=== PATIENT | female | born 1930 | race African-American/Black ===

== ENCOUNTER 2017-01-11 15:34 | Emergency (ER) | payer MEDICARE, MEDICAID ==
[~2017-01-11] VITALS: Ht 162.6 cm; Wt 75.0 kg
[~2017-01-11 15:34] MED LIST: ALBU6.7H INH; AMIO200T39 PO; AMLO10TA80 PO; DILT120C11 MT; FLUT1DIS3 INH; Hydrochlorothiazide PO; LIDO700A TOP; OMEP20TA80 PO; PRED5TAB48 PO; QUET25TA PO; T3 PO
[2017-01-11] MEDS ORDERED: HYDROCODONE/ACETAMINOPHEN 5/325MG TABLET PO ONE (17:30)
[2017-01-11 18:09] VITALS: BP 178/86
== END 2017-01-11 20:48 | disposition home or self-care (01) ==
LOC: ER 15:34
DX: M25.561 Pain in right knee (principal); M25.571 Pain in right ankle and joints of right foot; F03.90 Unspecified dementia, unspecified severity, without behavioral disturbance, psychotic disturbance, mood disturbance, and anxiety; I10 Essential (primary) hypertension; Z79.1 Long term (current) use of non-steroidal anti-inflammatories (NSAID); Z79.899 Other long term (current) drug therapy; Z95.0 Presence of cardiac pacemaker
CPT/HCPCS: 73502; 73560; 73590; 73610; 73630; 99284

== ENCOUNTER 2017-05-08 07:46 | Emergency (ER) | payer MEDICARE, MEDICAID ==
[~2017-05-08] VITALS: Ht 165.1 cm; Wt 55.0 kg
[~2017-05-08 07:46] MED LIST changes: +ACET-3161 PO; -T3 PO
[2017-05-08 08:59] LABS: HEMATOCRIT. 29.5 % (36.0-48.0); MEAN CORPUSCULAR HEMOGLOBIN 21.9 pg (28.0-32.0); MEAN CORPUSCULAR VOLUME 71.9 fL (81.0-99.0); MEAN PLATELET VOLUME 7.8 fl (7.4-10.4); PLATELET 223 x1000/uL (130-400); RED CELL DISTRIBUTION WIDTH 18.8 % (11.6-14.6)
[2017-05-08 08:59] LABS: *AMPHETAMINES SCREEN URINE NEGATIVE (NEGATIVE); *BARBITURATES SCREEN URINE NEGATIVE (NEGATIVE); *BENZODIAZEPINES SCREEN URINE NEGATIVE (NEGATIVE); *COCAINE SCREEN URINE NEGATIVE (NEGATIVE); CANNABINOID URINE SCREEN NEGATIVE (NEGATIVE); METHADONE URINE SCREEN NEGATIVE (NEGATIVE); OPIATES URINE SCREEN NEGATIVE (NEGATIVE); PHENCYCLIDINE URINE SCREEN NEGATIVE (NEGATIVE)
[2017-05-08 09:05] LABS: PROTHROMBIN TIME 10.7 sec
[2017-05-08 09:13] LABS: CARBON DIOXIDE 26 mEq/L (21-32); CHLORIDE 111 mEq/L (98-107)
[2017-05-08 09:15] LABS: TROPONIN I < 0.02 ng/mL (0.00-0.04)
[2017-05-08] MEDS ORDERED: KETOROLAC 15MG/ML VIAL IV ONE (09:15)
[2017-05-08 10:44] LABS: PLATELET ESTIMATE NORMAL
[2017-05-08 13:42] VITALS: BP 133/89
== END 2017-05-08 13:44 | disposition home or self-care (01) ==
LOC: ER 08:06
DX: R07.9 Chest pain, unspecified (principal); J44.9 Chronic obstructive pulmonary disease, unspecified; I10 Essential (primary) hypertension; I51.7 Cardiomegaly; F03.90 Unspecified dementia, unspecified severity, without behavioral disturbance, psychotic disturbance, mood disturbance, and anxiety; Z95.0 Presence of cardiac pacemaker
CPT/HCPCS: 36415; 71010; 80048; 80305; 83880; 84484; 85025; 85610; 93005; 96374; 99285; J1885

== ENCOUNTER 2017-11-02 11:46 | Emergency (ER) | payer MEDICARE, MEDICAID ==
[~2017-11-02] VITALS: Ht 162.6 cm; Wt 60.0 kg
[~2017-11-02 11:46] MED LIST changes: +AMI2 PO; -AMIO200T39 PO; +OMEP20TA2 PO; -OMEP20TA80 PO
[2017-11-02] MEDS ORDERED: ALBUTEROL (0.083%) 2.5MG/3ML NEB HHN ONE (12:45)
[2017-11-02] MEDS ORDERED: PREDNISONE 20MG TABLET PO SCH (12:45)
[2017-11-02] MEDS ORDERED: LORAZEPAM 0.5MG TABLET PO ONE (16:15)
[2017-11-02 17:24] VITALS: BP 154/71
== END 2017-11-02 17:25 | disposition home or self-care (01) ==
LOC: ER 11:47
DX: J20.9 Acute bronchitis, unspecified (principal); R51 Headache; I10 Essential (primary) hypertension; F03.90 Unspecified dementia, unspecified severity, without behavioral disturbance, psychotic disturbance, mood disturbance, and anxiety; J44.9 Chronic obstructive pulmonary disease, unspecified; Z95.0 Presence of cardiac pacemaker
CPT/HCPCS: 71045; 87804; 94640; 99285; J7512; J7611